=== PATIENT | female | born 1960 | race Two or more races ===

== ENCOUNTER 2018-04-23 20:34 | Inpatient (IN) | payer OTHER ==
[~2018-04-23] VITALS: Ht 167.6 cm; Wt 81.6 kg
--- NOTE | 2018-04-23 21:30 | NUR ---
PT WHEELCHAIR FROM WAITING ROOM TO BED 11. BILATERAL WRIST PAIN, INJURY, DEFORMITY NOTED STATUS POST FALL. PT WAS WALKING TO HER CAR, TRIP AND FALL, NO KO, NO HEAD TRAUMA.
[2018-04-23] MEDS ORDERED: oxyCODONE/APAP (5/325 MG) 1 UDTAB TABLET ONE (21:36)
[2018-04-23] MEDS ORDERED: ONDANSETRON 4 MG TAB.RAPDIS ONE (21:37)
--- NOTE | 2018-04-23 21:52 | NUR ---
RADIOLOGY AT BEDSIDE.
--- NOTE | 2018-04-23 21:52 | NUR ---
XRAY AT THE BEDSIDE.
--- NOTE | 2018-04-23 21:52 | NUR ---
XRAY IS AT THE BEDSIDE.
[2018-04-23] MEDS ORDERED: ONDANSETRON 4 MG TAB.RAPDIS SL ONE (22:00)
[2018-04-23] MEDS ORDERED: oxyCODONE/APAP (5/325 MG) 1 UDTAB TABLET PO ONE (22:00)
[2018-04-23] MEDS ORDERED: HYDROMORPHONE 1 MG/1 ML DISP.SYRIN ONE ×2 (22:49→23:45)
--- NOTE | 2018-04-23 22:53 | NUR ---
IV STARTED 20G RLE. MEDICATED ORDERED.
[2018-04-23] MEDS ORDERED: HYDROMORPHONE 1 MG/1 ML DISP.SYRIN IV ONE (23:00)
[2018-04-23] MEDS ORDERED: HYDROXYCHLOROQUINE PO (23:34)
--- NOTE | 2018-04-23 23:34 | NUR ---
CALLED [facility] AFTER HOURS AND POONAM WINSLOW WAS PAGED.
[2018-04-23] MEDS ORDERED: IBANDRONATE PO (23:35)
[2018-04-23] MEDS ORDERED: ENALAPRIL PO (23:35)
--- NOTE | 2018-04-23 23:42 | NUR ---
PT IS C/O PAIN. MD NOTIFIED AND NEW ORDERS GIVEN.
[2018-04-23] MEDS ORDERED: KETOROLAC TROMETHAMINE INJ 30 MG/ML VIAL ONE (23:45)
[2018-04-24] MEDS ORDERED: KETOROLAC TROMETHAMINE INJ 30 MG/ML VIAL IV ONE
[2018-04-24] MEDS ORDERED: HYDROMORPHONE 1 MG/1 ML DISP.SYRIN IV ONE
--- NOTE | 2018-04-24 00:19 | NUR ---
CUSTOMS COMPLIANCE DIRECTORKIM, AT THE BEDSIDE FOR BLOOD DRAW.
--- NOTE | 2018-04-24 00:25 | NUR ---
CXR IN PROGRESS AT THE BEDSIDE.
[2018-04-24 00:38] LABS: BASOPHILS # (AUTO) 0.1 /CMM (0.0-0.2); BASOPHILS % (AUTO) 0.8 % (0.0-2.0); EOSINOPHILS % (AUTO) 0.1 % (0.0-6.0); HEMATOCRIT 34 % (33-45); HEMOGLOBIN 11.3 g/dL (11.5-14.8); LYMPHOCYTES # (AUTO) 0.9 /CMM (0.8-4.8); LYMPHOCYTES % (AUTO) 12.5 % (20.0-44.0); MEAN CORPUSCULAR HGB CONC 34 g/dl (31.0-36.0); MEAN CORPUSCULAR VOLUME 100 fL (82-100); MONOCYTES # (AUTO) 0.3 /CMM (0.1-1.30); MONOCYTES % (AUTO) 3.5 % (2.0-12.0); NEUTROPHILS # (AUTO) 6.1 /CMM (1.8-8.9); NEUTROPHILS % (AUTO) 83.1 % (43.0-81.0); PLATELET COUNT (AUTO) 209 /CMM (150-450); RED BLOOD CELL COUNT(AUTO) 3.39 MIL/uL (4.0-5.2); WHITE BLOOD COUNT (AUTO) 7.4 K/uL (4.3-11.0)
[2018-04-24 00:45] LABS: CALCIUM, SERUM 8.8 mg/dL (8.5-10.1); CREATININE 1.4 mg/dL (0.6-1.3); POTASSIUM 4.2 mmol/L (3.5-5.1)
[2018-04-24] MEDS ORDERED: HYDROCODONE/APAP 5/325MG 1 EACH TABLET PO PRN (01:00)
[2018-04-24] MEDS ORDERED: HYDROCODONE/APAP 10/325MG 1 EA TABLET PO PRN (01:00)
[2018-04-24] MEDS ORDERED: ONDANSETRON HCL/PF 4 MG/2 ML VIAL IVP PRN (01:00)
[2018-04-24] MEDS ORDERED: ZOLPIDEM TARTRATE 5 MG TABLET PO PRN (01:00)
[2018-04-24] MEDS ORDERED: Z GUARD REMEDY 2 OZ OINT TP PRN (01:00)
[2018-04-24] MEDS ORDERED: MAG HYDROX/AL HYDROX/SIMETH 30 ML UDC PO PRN (01:00)
[2018-04-24] MEDS ORDERED: MAGNESIUM HYDROXIDE 30 ML UDC PO PRN (01:00)
[2018-04-24] MEDS ORDERED: ACETAMINOPHEN 325 MG TABLET PO PRN (01:00)
[2018-04-24] MEDS: TRAMADOL HCL 50 MG TABLET PO SCH ×3 (01:00→19:06)
[2018-04-24] MEDS ORDERED: HYDROMORPHONE 1 MG/1 ML DISP.SYRIN IV PRN (01:00)
--- NOTE | 2018-04-24 01:20 | NUR ---
REPORT GIVEN TO CHRISTIANO CALI
--- NOTE | 2018-04-24 01:25 | NUR ---
RN NOTES RECEIVED PATIENT'S REPORT FROM ER NURSE TIN. RECEIVED PATIENT ON ESTEVAN WITH HER ,PATIENT IS A/A/OX4. ON 2L O2 VIA NC WITH SPO2 OF 97%. PATIENT HAS ORTHOGLASS SPLINT IN BOTH ARMS. NO COMPLAINS OF PAIN OR SOB AT THIS TIME BUT COMPLAIN OF DISCOMFORT. RIGHT LOWER LEG 20G IV LINE IS PATIENT AND INTACT. SKIN ASSESSMENT IS DONE. ALL SAFETY MEASURES ARE IMPLEMENTED, BED IN LOW, LOCKED POSITION, CALL LIGHT IN REACH. WILL CONT. TO MONITOR.
[2018-04-24 01:54] VITALS: BP 154/87
--- NOTE | 2018-04-24 02:00 | NUR ---
RN NOTES CALLED MD JENNIE MARQUIS ABOUT PATIENT'S ITCHINESS AND NEW ORDER OF BENEDRYL 25MG IV ONCE IN PLACE AND DILAUDID HAS BEEN DISCONTINUED FOR NOW. WILL CONTINUE TO MONITOR.
[2018-04-24] MEDS ORDERED: diphenhydrAMINE HCL 50 MG/ML VIAL IV ONE (02:30)
[2018-04-24] MEDS: IV NS 0.9% 1,000 ML IV PRN ×2 (02:46→15:54)
[2018-04-24 04:00] VITALS: BP 123/68
[2018-04-24 08:00] VITALS: BP_SYST 126; BP_SYST 132; BP_DIAS 66; BP_DIAS 86
[2018-04-24 16:00] VITALS: BP 130/60
--- NOTE | 2018-04-24 19:30 | NUR ---
[facility] RN NOTE PATIENT RESTING IN BED IN STABLE CONDITION, FAMILY AT BEDSIDE. NO RESPIRATORY DISTRESS NOTED. CIRCULATION, COLOR AND TEMPERATURE WNL BILATERALLY IN ALL FINGERS. IV FLUIDS INFUSING ORDERED. IV SITE ON RIGHT LOWER EXTREMITY INTACT. ENDORSED TO SEMICONDUCTOR TESTING GROUP LEADER FOR CONTINUITY OF CARE.
--- NOTE | 2018-04-24 19:30 | NUR ---
RN INITIAL NOTES Received patient sitting up in bed, alert, oriented x 4. Family at bedside. Breathing even and unlabored. Not in any distress. Peripheral IV on R lower leg intact and patent. No complaints or pain or discomfort as of this time. Patient stable as endorsed by the morning RN. Will continue to monitor accordingly.
[2018-04-24 20:00] VITALS: BP 113/69
[2018-04-24] MEDS ORDERED: CHOL200026 PO (20:01)
--- NOTE | 2018-04-24 21:06 | NUR ---
RN NOTES Report given to CHRISTIANO Olea for continuity of care
[2018-04-25] MEDS: TRAMADOL HCL 50 MG TABLET PO SCH ×2 (01:31→08:19)
[2018-04-25 04:00] VITALS: BP_SYST 133; BP_SYST 152; BP_DIAS 79; BP_DIAS 86
[2018-04-25 04:37] VITALS: BP 133/79
[2018-04-25 05:58] LABS: APPEARANCE,URINE CLEAR (CLEAR); BILIRUBIN,URINE NEGATIVE (NEGATIVE); BLOOD, URINE NEGATIVE Ery/uL (NEGATIVE); COLOR,URINE YELLOW (YELLOW); KETONES,URINE NEGATIVE (NEGATIVE); LEUKOCYTE ESTERASE ,URINE NEGATIVE (NEGATIVE); NITRITE, URINE NEGATIVE (NEGATIVE); PH,URINE 6.5 (5.0-8.0); PROTEIN,URINE NEGATIVE (NEGATIVE); UGLUCOSE NEGATIVE (NEGATIVE); UROBILINOGEN,URINE 0.2 EU/dL (0.2)
[2018-04-25 06:34] LABS: EOSINOPHILS % (AUTO) 2.9 % (0.0-6.0); HEMATOCRIT 31 % (33-45); HEMOGLOBIN 10.3 g/dL (11.5-14.8); LYMPHOCYTES # (AUTO) 1.4 /CMM (0.8-4.8); MEAN CORPUSCULAR HGB CONC 34 g/dl (31.0-36.0); MEAN CORPUSCULAR VOLUME 101 fL (82-100); MONOCYTES # (AUTO) 0.4 /CMM (0.1-1.30); MONOCYTES % (AUTO) 7.5 % (2.0-12.0); NEUTROPHILS # (AUTO) 2.9 /CMM (1.8-8.9); NEUTROPHILS % (AUTO) 59.6 % (43.0-81.0); PLATELET COUNT (AUTO) 174 /CMM (150-450); RED BLOOD CELL COUNT(AUTO) 3.02 MIL/uL (4.0-5.2); WHITE BLOOD COUNT (AUTO) 4.9 K/uL (4.3-11.0)
[2018-04-25 06:40] LABS: CALCIUM, SERUM 7.9 mg/dL (8.5-10.1); MAGNESIUM 1.9 mg/dL (1.8-2.4); PHOSPHORUS 3.4 mg/dL (2.5-4.9); POTASSIUM 4.1 mmol/L (3.5-5.1)
--- NOTE | 2018-04-25 07:15 | NUR ---
MSRN. PT RECEIVED A&0X3, TOLERATING ROOM AIR WITHOUT DISTRESS OR SOB. PT REPORTING MODERATE PAIN TO BI.LAT UE, CMS INTACT AND EQUAL BI.LAT. PT WITH IVC AT R LOWER LEG INTACT AND OPERATIONAL WITH IVF PER RX. PT NPO FOR SURGERY, NO DOCUMENTATION COMPLETED R/T PT REFUSING AND WANTING SON TO TALK WITH MD- SURGERY MADE AWARE, SURGERY OK'D PO ANALGESIA. PT BED IN LOWEST LOCKED POSITION WITH HANDRAILSX2 AND CALL GARZA WITHIN REACH, PT BRIEFED ON POC AND IS WITHOUT CONCERN OR COMPLAINT AT THIS TIME.
[2018-04-25] MEDS: IV NS 0.9% 1,000 ML IV PRN (08:20)
[2018-04-25 09:19] VITALS: BP 127/77
[2018-04-25] MEDS ORDERED: LIDOCAINE HCL/PF 1% 30 ML SDV IJ STA (09:59)
[2018-04-25] MEDS ORDERED: MORPHINE SULFATE INJ 4 MG/ML DISP.SYRIN IV STA (09:59)
[2018-04-25] MEDS ORDERED: HYDROMORPHONE INJ 0.5 MG/0.5 ML SYRINGE IV STA (10:16)
[2018-04-25] MEDS ORDERED: HYDROMORPHONE 1 MG/1 ML DISP.SYRIN IV ONE (10:30)
--- NOTE | 2018-04-25 11:00 | NUR ---
MSRN. PT SEEN A BEDSIDE BY MD VANG, REFUSING SURGERY, CASTS APPLIED AT BEDSIDE. PT NOW RESTING COMFORTABLY, REPORTS MINOR PAIN TO BI LAT U.EXT, CMS REMAINS INTACT. PT DENIES FURTHER NEEDS AT THIS TIME.
[2018-04-25 12:40] VITALS: BP 120/70
[2018-04-25] MEDS ORDERED: HYDR-3972 PO (14:54)
--- NOTE | 2018-04-25 16:34 | NUR ---
MSRN. PT PREPARED FRO D/C PER MD MURRAY. PT TOLERATING ROOM AIR WITHOUT SOB OR RESP DISTRESS AND REPORTS MINOR BI LAT UE PAIN. PT IVC REMOVED FROM R LEG AND NAD AT SITE. PT WITH BI LAT UE CASTS IN PLACE CMS INTACT AND PT REPORTS HANDS AND FINGERS FEELING 'NORMAL'. PT AND WITH SON FOR TRANSLATION BRIEFED ON SCRIPTS, EDUCATION, POC AND PROVIDED FOLLOW UP DETAILS, PT SON BOOKED KALE PER INSTRUCTION, PT AND FAMILY VERBALIZING UNDERSTANDING RESOURCES AND INTENT TO FOLLOW POC. PT LEFT WITH R ARM IN SLING FOR COMFORT, FORM SETTER STEEL FORMS WITH PHOTO LAB SPECIALIST VIA WHEELCHAIR. PT AND FAMILY LEFT WITHOUT CONCERN OR COMPLAINT AND GRATEFUL FOR CARE.
[2018-04-26] MEDS ORDERED: CHOLECALCIFEROL 1,000 UNIT TABLET (VIT D3) PO SCH (09:00)
== END 2018-04-25 19:53 | disposition home or self-care (01) | DRG 342 ==
LOC: ER 20:40 → MEDSG1 04-24 00:51
PROVIDERS: ADMIT Internal Medicine; ATTEND Internal Medicine
PROC: 2W3FX1Z Immobilization of Left Hand using Splint (ICD-10-PCS; principal; 2018-04-25)
PROC: 2W3EX1Z Immobilization of Right Hand using Splint (ICD-10-PCS; principal; 2018-04-25)
DX: S52.611A Displaced fracture of right ulna styloid process, initial encounter for closed fracture (principal); N17.0 Acute kidney failure with tubular necrosis; M32.9 Systemic lupus erythematosus, unspecified; S52.501A Unspecified fracture of the lower end of right radius, initial encounter for closed fracture; I10 Essential (primary) hypertension; D63.8 Anemia in other chronic diseases classified elsewhere; S52.612A Displaced fracture of left ulna styloid process, initial encounter for closed fracture; S52.502A Unspecified fracture of the lower end of left radius, initial encounter for closed fracture; W01.0XXA Fall on same level from slipping, tripping and stumbling without subsequent striking against object, initial encounter; Y93.9 Activity, unspecified; Y92.009 Unspecified place in unspecified non-institutional (private) residence as the place of occurrence of the external cause; Z88.0 Allergy status to penicillin
CPT/HCPCS: 36415; 71045-TC; 73090-TC; 73100-TC; 73110; 80048-TC; 81000-TC; 83735-TC; 84100-TC; 85025-TC; 85730-TC; 86850-TC; 87081-TC; 93307-TC; A4606; A6402; G0378; J1170; J1200; J1885; J2405; J3490; J7030; Q0162; Z7610